=== PATIENT | female | born 1975 | race Two or more races ===

== ENCOUNTER 2017-03-21 13:36 | Emergency (ER) | payer SELFPAY ==
[2017-03-21 13:47] VITALS: BP 130/77; PULSE 90; TEMP 98.8; BMI 25.4
[2017-03-21] MEDS ORDERED: KETOROLAC TROMETHAMINE 60 MG/2 ML VIAL IM ONE (14:25)
[2017-03-21] MEDS ORDERED: KETOROLAC TROMETHAMINE 30 MG/1 ML VIAL ONE (14:27)
--- NOTE | 2017-03-21 15:10 | PDOC ---
History of Present Illness - General Chief Complaint: Sore Throat Stated Complaint: THROAT PAIN Time Seen by Provider: 03/21/17 14:06 History Source: Patient Exam Limitations: No Limitations - History of Present Illness Initial Comments: 03/21/17 15:05 Patient is a 41-year-old female, no significant medical history currently on no medication, no allergies presents with sudden onset of sore throat, tactile fever, chills. Right ear pain. No discharge. Past Medical History: Denies. Allergies: No known allergies Medications: None Family History: Non-contributory Social History: Denies smoking, alcohol use, or IVDU Review of Systems GENERAL/CONSTITUTIONAL: Fever. No weakness. No weight change. HEAD, EYES, EARS, NOSE AND THROAT: No change in vision. No ear pain or discharge. Sore throat. CARDIOVASCULAR: No chest pain or shortness of breath. RESPIRATORY: No cough, wheezing, or hemoptysis. GASTROINTESTINAL: No nausea, vomiting, diarrhea or constipation. No rectal bleeding. GENITOURINARY: No dysuria, frequency, or change in urination. MUSCULOSKELETAL: No joint or muscle swelling or pain. No neck or back pain. SKIN AND BREASTS: No rash or easy bruising. NEUROLOGIC: No headache, vertigo, loss of consciousness, or loss of sensation. PSYCHIATRIC: No depression or anxiety. ENDOCRINE: No increased thirst. No abnormal weight change. HEMATOLOGIC/LYMPHATIC: No anemia, easy bleeding, or history of blood clots. ALLERGIC/IMMUNOLOGIC: No hives or skin allergy. No latex allergy. Physical Exam: GENERAL: The patient is awake, alert, and fully oriented, in no acute distress. HEAD: Normal with no signs of trauma. EYES: Pupils equal, round and reactive to light, extraocular movements intact, sclera anicteric, conjunctiva clear. ENT: Ears normal, nares patent, oropharynx erythematous, raw with no exudates. Moist mucous membranes. No uvula deviation NECK: Normal range of motion, supple without lymphadenopathy, JVD, or masses. LUNGS: Breath sounds equal, clear to auscultation bilaterally. No wheezes, and no crackles. HEART: Regular rate and rhythm, normal S1 and S2 without murmur, rub or gallop. ABDOMEN: Soft, nontender, normoactive bowel sounds. No guarding, no rebound. No masses. No bruising or abrasions MUSCULOSKELETAL: Normal range of motion, no edema. No clubbing or cyanosis. No cords, erythema, or tenderness. No CVA Tenderness with fist. NEUROLOGICAL: Cranial nerves II through XII grossly intact. Normal speech, normal gait. SKIN: Warm, Dry, normal turgor, no rashes or lesions noted. 03/21/17 15:59 Timing/Duration: 4-6 hours Severity: moderate Associated Symptoms: reports: fever/chills Past History - Past Medical History Allergies/Adverse Reactions: Allergies Allergy/AdvReac Type Severity Reaction Status Date / Time No Known Allergies Allergy Verified 03/21/17 13:47 Home Medications: Ambulatory Orders Azithromycin [Zithromax 250mg Tablets -] 250 mg PO UTDICT #6 tab 03/21/17 Asthma: Yes - Suicide/Smoking/Psychosocial Hx Smoking Status: Yes Smoking History: Never smoked Number of Cigarettes Smoked Daily: 1 Hx Alcohol Use: No Drug/Substance Use Hx: No *Physical Exam - Vital Signs Last Vital Signs Temp Pulse Resp BP Pulse Ox 98.8 F 90 20 130/77 99 03/21/17 13:43 03/21/17 13:43 03/21/17 13:43 03/21/17 13:43 03/21/17 13:43 ED Treatment Course - ADDITIONAL ORDERS Additional order review: 03/21/17 14:26 Group A Strep Rapid Antigen - Final Throat - Medications Given in the ED: ED Medications Discontinued Medications Generic Name Dose Route Start Last Admin Trade Name Freq PRN Reason Stop Dose Admin Ketorolac Tromethamine 60 mg 03/21/17 14:25 03/21/17 14:32 Toradol Injection - IM 03/21/17 14:26 60 mg ONCE ONE Administration Medical Decision Making - Medical Decision Making 03/21/17 15:59 A/P: Patient here for evaluation of sudden onset of severe throat pain and tactile fever, patient states that it feels like she swallowing razors and her right ear hurts when she swallows. Toradol 60 mg IM times one given, there is no uvula deviation or evidence of peritonsillar abscess. Rapid strep sent and negative however based upon patient's clinical presentation will DC on azithromycin. Motrin for pain, warm saltwater gargles Change toothbrush after medication has been started for 3 days. I discussed the physical exam findings, ancillary test results and final diagnoses with the patient. I answered all of the patient's questions. The patient was satisfied with the care received and felt comfortable with the discharge plan and treatment plan. The patient will call to arrange follow-up and will return to the Emergency Department with any new, persistent or worsening symptoms. *DC/Admit/Observation/Transfer Diagnosis at time of Disposition: Throat pain Pharyngitis Qualifiers: Pharyngitis/tonsillitis etiology: unspecified etiology Qualified Code(s): J02.9 - Acute pharyngitis, unspecified - Discharge Dispostion Disposition: HOME Condition at time of disposition: Good Admit: No - Prescriptions Prescriptions: Azithromycin [Zithromax 250mg Tablets -] 250 mg PO UTDICT #6 tab - Referrals Referrals: Nasir Dawkins MD [Staff Physician] - - Patient Instructions Printed Discharge Instructions: DI for Pharyngitis/Tonsillopharyngitis -- Adult Additional Instructions: 1. Increase fluid. 2. Pedialyte or Gatorade. 3. Please change toothbrush within 3 days of starting antibiotics. 4. Warm saltwater gargles. 5. Please follow up with PMD in 3 days if symptoms not resolving. 6. Please return to the ER unable to drink or eat, increased fever or other concerns - Post Discharge Activity Forms/Work/School Notes: Back to Work
== END 2017-03-21 15:20 | disposition home or self-care (01) ==
LOC: JERFT 13:36
PROC: 3E0233Z Introduction of Anti-inflammatory into Muscle, Percutaneous Approach (ICD-10-PCS; principal; 2017-03-21)
DX: J02.9 Acute pharyngitis, unspecified (principal)
CPT/HCPCS: 87070; 87430; 99281-25

== ENCOUNTER 2020-08-12 10:00 | Emergency (ER) | payer OTHER ==
[2020-08-12 10:06] VITALS: BP 128/70; PULSE 77; TEMP 98.5; BMI 25.4
[2020-08-12] MEDS ORDERED: METHOCARBAMOL 500 MG TABLET PO ONE (10:23)
[2020-08-12] MEDS ORDERED: KETOROLAC TROMETHAMINE 30 MG/1 ML VIAL IM ONE (10:23)
[2020-08-12] MEDS ORDERED: METHOCARBAMOL 500 MG TABLET ONE (10:50)
[2020-08-12] MEDS ORDERED: KETOROLAC TROMETHAMINE 30 MG/1 ML VIAL ONE (10:50)
== END 2020-08-12 11:06 | disposition home or self-care (01) ==
LOC: JER 10:00
PROC: 3E0233Z Introduction of Anti-inflammatory into Muscle, Percutaneous Approach (ICD-10-PCS; principal; 2020-08-12)
DX: S39.012A Strain of muscle, fascia and tendon of lower back, initial encounter (principal); S16.1XXA Strain of muscle, fascia and tendon at neck level, initial encounter
CPT/HCPCS: 99284-25

== ENCOUNTER 2023-05-23 09:54 | Emergency (ER) | payer OTHER ==
[2023-05-23 10:02] VITALS: BP 135/76; PULSE 82; RESP 18; TEMP 97.9; BMI 27.6
[2023-05-23] MEDS ORDERED: IBUPROFEN 400 MG TABLET (FP) PO ONE ×2 (10:39→10:47)
[2023-05-23] MEDS ORDERED: ACETAMINOPHEN 500 MG TABLET (FP) PO ONE (10:39)
[2023-05-23] MEDS ORDERED: ACETAMINOPHEN 500 MG TABLET (FP) ONE (10:47)
== END 2023-05-23 12:02 | disposition home or self-care (01) ==
LOC: JERFT 09:54
DX: M25.532 Pain in left wrist (principal); M54.50 Low back pain, unspecified
CPT/HCPCS: 73110-TC-LT-FY; 73130-TC-LT-FY; 99283-25

== ENCOUNTER 2025-03-01 18:02 | Inpatient (IN) | payer OTHER ==
[2025-03-01] MEDS ORDERED: KETOROLAC TROMETHAMINE 30 MG/1 ML VIAL ONE (18:36)
[2025-03-01 18:38] LABS: ABSOLUTE IMMATURE GRANULOCYTES 0.04 x10^3/uL (0.0-0.031); BASOPHILS # 0.04 x10^3/uL (0.01-0.08); EOSINOPHIL % 2.8 % (0.7-5.8); EOSINOPHILS # 0.23 x10^3/uL (0.04-0.36); MCHC 31.9 g/dl (32.2-35.5); MEAN CELL VOLUME 82.1 fl (79.4-94.8); MEAN PLT VOLUME 9.0 fl (9.4-12.3); MONOCYTE # 0.47 x10^3/uL (0.24-0.86); MONOCYTE % 5.7 % (4.7-12.5); RDW 13.8 % (12.2-17.1)
[2025-03-01] MEDS: KETOROLAC TROMETHAMINE 30 MG/1 ML VIAL IVPUSH ONE (18:40)
[2025-03-01] MEDS: SODIUM CHLORIDE 0.9% 500 ML INFUS.BAG IV ONE (18:40)
[2025-03-01 18:51] LABS: GLUCOSE,RANDOM 99.0 mg/dL (74-106)
[2025-03-01 18:52] LABS: TOT PROT 8.5 g/dl (6.4-8.2)
[2025-03-01 18:53] LABS: CO2 24.0 mmol/L (21-32)
[2025-03-01 18:54] LABS: ALK PHOS 194.0 U/L (40-150)
[2025-03-01 18:57] LABS: CREATININE 0.77 mg/dL (0.55-1.3); SGOT/AST 38.0 U/L (5-34); SGPT/ALT 31.0 U/L (0-55)
[2025-03-01] MEDS ORDERED: MORPHINE SULFATE 2 MG/ML SYRINGE ONE (19:18)
[2025-03-01] MEDS: morphine CARPU-JECT 2 MG/1 ML DISP.SYRIN IVPUSH ONE (19:22)
[2025-03-01 19:33] LABS: EPI CELLS 6 /uL (0-25.1); HYALINE CASTS 0 /uL (0-3.1); URINE APPEARANCE CLEAR; URINE BACTERIA 75 /uL (0-1359); URINE BILIRUBIN NEGATIVE (NEGATIVE); URINE COLOR YELLOW; URINE GLUCOSE (UA) NEGATIVE (NEGATIVE); URINE KETONE NEGATIVE (NEGATIVE); URINE LEUK ESTERASE TRACE (NEGATIVE); URINE NITRITE NEGATIVE (NEGATIVE); URINE PROTEIN NEGATIVE (NEGATIVE); URINE RBC 8 /uL (0-23.9); URINE UROBILINOGEN 0.2 mg/dL (0.2-1.0); URINE WBC 11 /uL (0-25.8)
[2025-03-01] MEDS ORDERED: AZITHROMYCIN 500 MG TABLET ONE (20:36)
[2025-03-01] MEDS ORDERED: DEXAMETHASONE SOD PHOSPHATE 10 MG/1 ML VIAL ONE (20:37)
[2025-03-01] MEDS: DEXAMETHASONE SOD PHOSPHATE 10 MG/1 ML VIAL IVPUSH ONE (20:44)
[2025-03-01] MEDS: AZITHROMYCIN 500 MG TABLET PO ONE (20:44)
[2025-03-02 01:17] LABS: COCAINE, UR NEGATIVE (NEGATIVE)
[2025-03-02 01:18] LABS: OPIATES, URI NEGATIVE (NEGATIVE); PHENCYCLIDINE,URINE NEGATIVE (NEGATIVE); URINE AMPHETAMINES NEGATIVE (NEGATIVE)
[2025-03-02 01:19] LABS: METHADONE, UR NEGATIVE (NEGATIVE); URINE BARBITURATES NEGATIVE (NEGATIVE); URINE BENZODIAZEPINES NEGATIVE (NEGATIVE)
[2025-03-02] MEDS: ACETAMINOPHEN 1000 MG/100 ML BAG IVPB PRN (02:19)
[2025-03-02 03:18] VITALS: BMI 31.3
[2025-03-02 03:49] LABS: PHENCYCLIDINE,URINE NEGATIVE (NEGATIVE); URINE AMPHETAMINES NEGATIVE (NEGATIVE)
[2025-03-02] MEDS: LIDOCAINE 5% TOPICAL PATCH TP ONE (04:17)
[2025-03-02 04:20] LABS: COCAINE, UR NEGATIVE (NEGATIVE); METHADONE, UR NEGATIVE (NEGATIVE); OPIATES, URI POSITIVE (NEGATIVE); URINE BARBITURATES NEGATIVE (NEGATIVE); URINE BENZODIAZEPINES NEGATIVE (NEGATIVE)
[2025-03-02 08:08] LABS: ABSOLUTE IMMATURE GRANULOCYTES 0.03 x10^3/uL (0.0-0.031); BASOPHILS # 0.01 x10^3/uL (0.01-0.08); EOSINOPHIL % 0.0 % (0.7-5.8); EOSINOPHILS # 0.00 x10^3/uL (0.04-0.36); MCHC 32.0 g/dl (32.2-35.5); MEAN CELL VOLUME 81.1 fl (79.4-94.8); MEAN PLT VOLUME 8.9 fl (9.4-12.3); MONOCYTE # 0.05 x10^3/uL (0.24-0.86); MONOCYTE % 0.7 % (4.7-12.5); RDW 13.6 % (12.2-17.1)
[2025-03-02 08:37] LABS: GLUCOSE,RANDOM 143.0 mg/dL (74-106)
[2025-03-02 08:38] LABS: TOT PROT 7.6 g/dl (6.4-8.2)
[2025-03-02 08:39] LABS: CO2 21.0 mmol/L (21-32)
[2025-03-02 08:41] LABS: ALK PHOS 182.0 U/L (40-150)
[2025-03-02 08:43] LABS: SGOT/AST 22.0 U/L (5-34); SGPT/ALT 27.0 U/L (0-55)
[2025-03-02 08:44] LABS: CREATININE 0.71 mg/dL (0.55-1.3)
[2025-03-02] MEDS: KETOROLAC TROMETHAMINE 15 MG/ML VIAL IVPUSH SCH (09:28)
[2025-03-02] MEDS: ENOXAPARIN NA (PORCINE) 30 MG/0.3 ML DISP.SYRIN SQ SCH (09:36)
[2025-03-02] MEDS ORDERED: CEFTRIAXONE 1 GM in DEXTROSE 5%-WATER - 50 ML IVPB SCH (10:00)
[2025-03-02] MEDS ORDERED: ENOXAPARIN NA (PORCINE) 30 MG/0.3 ML DISP.SYRIN SQ SCH (10:00)
[2025-03-02] MEDS: morphine CARPU-JECT 2 MG/1 ML DISP.SYRIN IVPUSH PRN (19:40)
[2025-03-02] MEDS ORDERED: AZITHROMYCIN 500 MG TABLET PO SCH (20:00)
[2025-03-02] MEDS ORDERED: LIDOCAINE PATCH REMOVAL MC SCH (22:00)
[2025-03-03 06:39] VITALS: RESP 16
[2025-03-03 08:31] LABS: GLUCOSE,RANDOM 93.0 mg/dL (74-106)
[2025-03-03 08:32] LABS: CO2 24.0 mmol/L (21-32)
[2025-03-03 08:36] LABS: CREATININE 0.81 mg/dL (0.55-1.3)
[2025-03-03 08:59] VITALS: BP 125/89; PULSE 77; TEMP 97.7
[2025-03-03] MEDS: ENOXAPARIN NA (PORCINE) 40 MG/0.4 ML DISP.SYRIN SQ SCH (09:51)
[2025-03-04 22:07] LABS: SPECKLED PATTERN 1:320 (.)
[2025-03-06 16:07] LABS: C-ANCA <1:20 titer (Neg:<1:20)
== END 2025-03-03 14:26 | disposition home or self-care (01) | DRG 347 ==
LOC: JER 18:02 → JERBED 23:09 → OBSVTOIN 23:17 → J7W 03-02 01:18
PROVIDERS: ADMIT Internal Medicine
DX: M54.17 Radiculopathy, lumbosacral region (principal); J45.909 Unspecified asthma, uncomplicated; Z68.31 Body mass index [BMI] 31.0-31.9, adult; E66.9 Obesity, unspecified; R79.89 Other specified abnormal findings of blood chemistry
CPT/HCPCS: 36415; 71046-TC-FY; 71250-TC; 74177-TC; 76705-TC; 80048; 80053; 80307; 81003; 82787; 83520; 83735; 84100; 84703; 85025; 85651; 86038; 86140; 86200; 86256; 86431; 87086; 87899; 93005; 93010; 94010; 97116-GP; 97161-GP; 99285-25; G0378; J1100; Q9967